=== PATIENT | male | born 1945 | race Caucasian/White ===

== ENCOUNTER 2018-09-17 12:52 | Emergency (ER) | payer OTHER ==
[~2018-09-17] VITALS: Ht 177.8 cm; Wt 117.9 kg
[~2018-09-17 12:52] MED LIST: ACET325; ACET500; ALPR.25 PO; ATEN50; ATEN50 PO; ATOR40TA; Aspir 8181 MG PO; CELE200 PO; CEPH500 PO; ENOX40I SC; FLUSAL2505; HYDACE5 PO; HYDMOR2 PO; IRBE150; LEVFLO500 PO; LIPITOR; LISI20 PO; METO100ER PO; METO50ER; Multi-Day Vita1 EACH; NAPR550 PO; Norco 5-325 Ta1 EACH PO; ONDA8 PO; OXYACE5T PO; OXYC10ER PO; OXYC5 PO; Oxycodone HCl5 M1 PO; PHENA100 PO; PRAV20 PO; RANI150 PO; RAPAFLO PO; RXNAPNA550 PO; TRIHYD253B; TRIHYD253B PO
[2018-09-17 13:34] LABS: BASOPHILS ABSOLUTE AUTO 0.05 K/mm3 (0.00-0.23); BASOPHILS PERCENT AUTO 1 % (0-2); EOSINOPHILS ABSOLUTE AUTO 0.14 K/mm3 (0.00-0.68); EOSINOPHILS PERCENT AUTO 2 % (0-6); Hematocrit 32.7 % (37.0-53.0); IMMATURE GRAN ABSOLUTE AUTO 0.06 K/mm3 (0.00-0.10); IMMATURE GRAN PERCENT AUTO 1 % (0-1); LYMPHOCYTES ABSOLUTE AUTO 1.66 K/mm3 (0.84-5.20); LYMPHOCYTES PERCENT AUTO 24 % (21-46); MONOCYTES ABSOLUTE AUTO 0.62 K/mm3 (0.16-1.47); MONOCYTES PERCENT AUTO 9 % (4-13); Mean Corpuscular HGB 32.7 pg (26.0-34.0); Mean Corpuscular HGB Conc 33.6 g/dL (31.5-36.5); Mean Corpuscular Volume 97 fL (80-100); Mean Platelet Volume 10.2 fL (9.1-12.4); NEUTROPHILS PERCENT AUTO 63 % (41-73); Platelet Count 321 K/mm3 (150-400); RDW Standard Deviation 45.4 fL (35.1-46.3); Red Blood Cell Count 3.36 M/mm3 (4.30-5.90); White Blood Cell Count 6.83 K/mm3 (4.00-11.30)
[2018-09-17 13:54] LABS: Alanine Aminotransfer (ALT/SGP 23 U/L (12-78); Albumin, Blood 3.5 g/dL (3.4-5.0); Albumin/Globulin Ratio 1.2 (0.8-1.8); Alk Phos 77 U/L (50-136); Anion Gap 8 mmol/L (6-16); Aspartate Aminotrans (AST/SGOT 21 U/L (12-37); Bilirubin, Total 0.6 mg/dL (0.1-1.0); Blood Urea Nitrogen 21 mg/dL (8-24); Bun/Creatinine Ratio 20.6 (12.0-20.0); CO2, Blood 28 mmol/L (21-32); Calcium, Blood 8.2 mg/dL (8.5-10.1); Chloride, Blood 105 mmol/L (98-108); Creatinine, Blood 1.02 mg/dL (0.60-1.20); Globulin, Blood 2.9 g/dL (2.2-4.0); Glomerular Filtration Rate >60 (60-); Glucose, Blood 117 mg/dL (70-99); Potassium, Blood 3.9 mmol/L (3.5-5.5); Sodium, Blood 141 mmol/L (136-145); Total Protein, Blood 6.4 g/dL (6.4-8.2); Troponin I <0.015 ng/mL (0.000-0.040)
[2018-09-17] MEDS ORDERED: Fish Oil 10001000 MG GT (14:49)
== END 2018-09-17 16:39 | disposition home or self-care (01) ==
LOC: ER 12:52
PROVIDERS: Physician Assistant
DX: F41.9 Anxiety disorder, unspecified (principal); G47.00 Insomnia, unspecified; F43.9 Reaction to severe stress, unspecified; Z87.891 Personal history of nicotine dependence; Z85.51 Personal history of malignant neoplasm of bladder
CPT/HCPCS: 36415; 71046; 80053; 84484; 85025; 93005; 93010; 99284-25

== ENCOUNTER → 2018-10-04 | Outpatient (CLI) | payer OTHER ==
[~2018-10-04] MED LIST changes: +Fish Oil 10001000 MG GT
[2018-10-04 15:20] LABS: Stool Occult Bld Immuno 1 Negative (NEGATIVE)
== END | disposition home or self-care (01) ==
LOC: LAB SHORT 10:15 → LAB 10:15 → LAB FUT 10-03 12:40
PROVIDERS: Internal Medicine Gastroenterology
DX: D50.9 Iron deficiency anemia, unspecified (principal)
CPT/HCPCS: G0328

== ENCOUNTER 2018-10-16 09:06 | Day surgery (SDC) | payer OTHER ==
[~2018-10-16] VITALS: Ht 177.8 cm; Wt 115.7 kg
== END 2018-10-16 11:29 | disposition home or self-care (01) ==
LOC: ORSCSDS 09:06
PROVIDERS: Internal Medicine Gastroenterology
PROC: 0DB98ZX Excision of Duodenum, Via Natural or Artificial Opening Endoscopic, Diagnostic (ICD-10-PCS; principal; 2018-10-16 10:30)
PROC: 0DB68ZX Excision of Stomach, Via Natural or Artificial Opening Endoscopic, Diagnostic (ICD-10-PCS; principal; 2018-10-16 10:30)
DX: D50.9 Iron deficiency anemia, unspecified (principal); K29.80 Duodenitis without bleeding; I10 Essential (primary) hypertension; Z87.891 Personal history of nicotine dependence; Z79.82 Long term (current) use of aspirin; Z79.899 Other long term (current) drug therapy
CPT/HCPCS: 87081; 88305; 88342; J7120

== ENCOUNTER → 2018-11-28 | Outpatient (CLI) | payer OTHER ==
[2018-11-29 14:08] LABS: Stool Occult Bld Immuno 1 Negative (NEGATIVE)
== END | disposition home or self-care (01) ==
LOC: LAB 16:04 → LAB SHORT 16:04 → LAB FUT 10-04 10:25
PROVIDERS: Internal Medicine Gastroenterology
DX: D50.9 Iron deficiency anemia, unspecified (principal)
CPT/HCPCS: G0328

== ENCOUNTER → 2021-06-10 | Outpatient (CLI) | payer OTHER | END | disposition home or self-care (01) | LOC: LAB SHORT 12:23 | DX: D48.5 Neoplasm of uncertain behavior of skin (principal) | CPT/HCPCS: 88305 ==

== ENCOUNTER → 2021-06-30 | Outpatient (CLI) | payer OTHER | END | disposition home or self-care (01) | LOC: LAB 14:53 → LAB SHORT 14:53 | DX: D48.5 Neoplasm of uncertain behavior of skin (principal) | CPT/HCPCS: 88305 ==

== ENCOUNTER → 2021-07-08 | Outpatient (CLI) | payer OTHER | END | disposition home or self-care (01) | LOC: LAB SHORT 15:50 → LAB 15:50 | DX: D48.5 Neoplasm of uncertain behavior of skin (principal) | CPT/HCPCS: 88305 ==

== ENCOUNTER 2021-11-30 09:01 | Day surgery (SDC) | payer OTHER ==
[~2021-11-30] VITALS: Ht 177.8 cm; Wt 118.7 kg
[2021-11-30] MEDS ORDERED: Flovent 220 Ora12 GM INH (09:30)
[2021-11-30] MEDS ORDERED: CELE200 PO (09:31)
[2021-11-30] MEDS ORDERED: ESCI10 PO (09:33)
== END 2021-11-30 10:52 | disposition home or self-care (01) ==
LOC: ORSCSDS 09:01
PROVIDERS: Internal Medicine Gastroenterology
PROC: 0DBE8ZX Excision of Large Intestine, Via Natural or Artificial Opening Endoscopic, Diagnostic (ICD-10-PCS; principal; 2021-11-30 10:30)
DX: R19.4 Change in bowel habit (principal); Z86.010 Personal history of colon polyps; K57.30 Diverticulosis of large intestine without perforation or abscess without bleeding; K58.2 Mixed irritable bowel syndrome; Z87.891 Personal history of nicotine dependence; E66.9 Obesity, unspecified; Z68.37 Body mass index [BMI] 37.0-37.9, adult; Z79.899 Other long term (current) drug therapy
CPT/HCPCS: 88305; J2704; J7120

== ENCOUNTER → 2022-02-03 | Outpatient (CLI) | payer OTHER ==
[~2022-02-03] MED LIST changes: +ESCI10 PO; +Flovent 220 Ora12 GM INH
[2022-02-03 15:00] LABS: BASOPHILS ABSOLUTE AUTO 0.08 K/mm3 (0.00-0.23); BASOPHILS PERCENT AUTO 1 % (0-2); EOSINOPHILS ABSOLUTE AUTO 0.02 K/mm3 (0.00-0.68); EOSINOPHILS PERCENT AUTO 0 % (0-6); Hematocrit 50.2 % (37.0-53.0); Hemoglobin 17.5 g/dL (13.5-17.5); IMMATURE GRAN ABSOLUTE AUTO 0.04 K/mm3 (0.00-0.10); IMMATURE GRAN PERCENT AUTO 0 % (0-1); LYMPHOCYTES ABSOLUTE AUTO 1.43 K/mm3 (0.84-5.20); LYMPHOCYTES PERCENT AUTO 14 % (21-46); MONOCYTES ABSOLUTE AUTO 0.97 K/mm3 (0.16-1.47); MONOCYTES PERCENT AUTO 9 % (4-13); Mean Corpuscular HGB 32.2 pg (26.0-34.0); Mean Corpuscular HGB Conc 34.9 g/dL (31.5-36.5); Mean Corpuscular Volume 92 fL (80-100); Mean Platelet Volume 10.7 fL (9.1-12.4); NEUTROPHILS ABSOLUTE AUTO 7.99 K/mm3 (1.96-9.15); NEUTROPHILS PERCENT AUTO 76 % (41-73); Platelet Count 270 K/mm3 (150-400); RDW Coefficient Variation 12.4 % (11.7-14.2); RDW Standard Deviation 42.6 fL (35.1-46.3); Red Blood Cell Count 5.43 M/mm3 (4.30-5.90); White Blood Cell Count 10.53 K/mm3 (4.00-11.30)
[2022-02-03 15:27] LABS: Albumin, Blood 3.7 g/dL (3.4-5.0); Bilirubin, Total 1.6 mg/dL (0.1-1.0); Bun/Creatinine Ratio 22.7 (12.0-20.0); Calcium, Blood 8.9 mg/dL (8.5-10.1); Creatinine, Blood 0.75 mg/dL (0.60-1.20); Globulin, Blood 3.8 g/dL (2.2-4.0); Total Protein, Blood 7.5 g/dL (6.4-8.2)
== END | disposition home or self-care (01) ==
LOC: LAB 14:46 → LAB SHORT 14:46
PROVIDERS: Nurse Practitioner Family
DX: R30.9 Painful micturition, unspecified (principal); R10.10 Upper abdominal pain, unspecified; R19.7 Diarrhea, unspecified; R53.83 Other fatigue
CPT/HCPCS: 80053; 83735; 85025

== ENCOUNTER 2022-02-07 09:04 | Emergency (ER) | payer OTHER ==
[~2022-02-07] VITALS: Ht 177.8 cm; Wt 122.5 kg
[2022-02-07 11:26] LABS: BASOPHILS ABSOLUTE AUTO 0.04 K/mm3 (0.00-0.23); BASOPHILS PERCENT AUTO 1 % (0-2); EOSINOPHILS ABSOLUTE AUTO 0.19 K/mm3 (0.00-0.68); EOSINOPHILS PERCENT AUTO 2 % (0-6); Hematocrit 47.5 % (37.0-53.0); Hemoglobin 16.1 g/dL (13.5-17.5); IMMATURE GRAN ABSOLUTE AUTO 0.06 K/mm3 (0.00-0.10); IMMATURE GRAN PERCENT AUTO 1 % (0-1); LYMPHOCYTES ABSOLUTE AUTO 1.39 K/mm3 (0.84-5.20); LYMPHOCYTES PERCENT AUTO 16 % (21-46); MONOCYTES ABSOLUTE AUTO 0.75 K/mm3 (0.16-1.47); MONOCYTES PERCENT AUTO 9 % (4-13); Mean Corpuscular HGB 32.1 pg (26.0-34.0); Mean Corpuscular HGB Conc 33.9 g/dL (31.5-36.5); Mean Corpuscular Volume 95 fL (80-100); NEUTROPHILS ABSOLUTE AUTO 6.16 K/mm3 (1.96-9.15); NEUTROPHILS PERCENT AUTO 72 % (41-73); Platelet Count 283 K/mm3 (150-400); RDW Coefficient Variation 12.3 % (11.7-14.2); RDW Standard Deviation 42.5 fL (35.1-46.3); Red Blood Cell Count 5.02 M/mm3 (4.30-5.90); White Blood Cell Count 8.59 K/mm3 (4.00-11.30)
[2022-02-07 11:50] LABS: Albumin, Blood 3.3 g/dL (3.4-5.0); Albumin/Globulin Ratio 0.9 (0.8-1.8); Bilirubin, Total 1.1 mg/dL (0.1-1.0); Bun/Creatinine Ratio 13.3 (12.0-20.0); Calcium, Blood 8.9 mg/dL (8.5-10.1); Creatinine, Blood 0.83 mg/dL (0.60-1.20); Globulin, Blood 3.6 g/dL (2.2-4.0); Potassium, Blood 3.7 mmol/L (3.5-5.5); Total Protein, Blood 6.9 g/dL (6.4-8.2)
[2022-02-07] MEDS ORDERED: ONDA4 PO (12:36)
== END 2022-02-07 15:29 | disposition home or self-care (01) ==
LOC: ER 09:04
PROVIDERS: Physician Assistant
DX: A08.4 Viral intestinal infection, unspecified (principal); U07.1 COVID-19; Z88.0 Allergy status to penicillin; Z88.8 Allergy status to other drugs, medicaments and biological substances; Z87.891 Personal history of nicotine dependence
CPT/HCPCS: 36415; 74176; 80053; 83690; 85025; J2405; J7030

== ENCOUNTER 2024-03-13 14:42 | Emergency (ER) | payer OTHER ==
[~2024-03-13] VITALS: Ht 177.8 cm; Wt 119.3 kg
[~2024-03-13 14:42] MED LIST changes: +ONDA4 PO
[2024-03-13 15:02] VITALS: BP 144/95
[2024-03-13] MEDS ORDERED: DYAZIDE 37.5-21 EACH PO (15:36)
[2024-03-13] MEDS ORDERED: TROSPIUM CHLORI60 MG PO (15:36)
[2024-03-13] MEDS ORDERED: OXYACE7.5T PO (15:53)
[2024-03-13] MEDS ORDERED: DOC250 PO (15:53)
== END 2024-03-13 16:08 | disposition home or self-care (01) ==
LOC: ER 14:42
DX: S70.01XA Contusion of right hip, initial encounter (principal); V47.5XXA Car driver injured in collision with fixed or stationary object in traffic accident, initial encounter; M16.11 Unilateral primary osteoarthritis, right hip; I10 Essential (primary) hypertension; E78.5 Hyperlipidemia, unspecified; Z87.891 Personal history of nicotine dependence; Z88.0 Allergy status to penicillin; Z88.8 Allergy status to other drugs, medicaments and biological substances; Z79.899 Other long term (current) drug therapy
CPT/HCPCS: 73552; 99283-25

== ENCOUNTER 2024-10-10 08:39 | Day surgery (SDC) | payer OTHER ==
[~2024-10-10] VITALS: Ht 171 cm; Wt 112.4 kg
[~2024-10-10 08:39] MED LIST changes: -ACET325; +Acetaminophen 500 MG Tab PO SCH; +Acetaminophen650 M1 PO; +CeFAZolin Sodium 2,000 MG VIAL ONE; +CeFAZolin Sodium 2,000 MG in NS 100 ML IV SCH; +Chlorhexidine Mouth Care 15 ML UDC MT SCH; +DOC250 PO; +DYAZIDE 37.5-21 EACH PO; +FLOVENT INH; -Flovent 220 Ora12 GM INH; +LORA10ER PO; +Lactated Ringer's 1,000 ML IV SCH; +MIRABEGRON ER50 MG PO; +MULTI-VITAMIN1 EAC2 PO; -Multi-Day Vita1 EACH; +OXYACE7.5T PO; +OxyCODONE HCL 10 MG TABCR PO SCH; +Percocet 5-3251 EACH PO; +Ropivacaine 0.5% HCl/Pf 123.125 MG,EPINEPHrine HCL 0.25 MG,Ketorolac Tromethamine 15 MG... INFIL SCH; +TROSPIUM CHLORI60 MG PO; +Tranexamic Acid 1,000 MG in NS 100 ML IV SCH; +Vancomycin HCL 1,000 MG in NS 250 ML IV SCH; +ZESTRIL40 M1 PO; +[UNRECOGNIZED DRUG - OTHER] PO
[2024-10-10] MEDS ORDERED: propofoL 60 ML IV ONE (08:41)
[2024-10-10] MEDS ORDERED: FentaNYL Citrate 50 MCG/ML 2 ML Injection ONE (08:41)
[2024-10-10] MEDS ORDERED: Dexamethasone Sod Phos 10 MG/ML 1ML VIAL ONE (08:42)
[2024-10-10] MEDS ORDERED: Ondansetron HCl 2 MG / ML 2ML Vial ONE (08:42)
[2024-10-10] MEDS ORDERED: Phenylephrine HCl 100 MCG/ML-NS 10MLSYR (1MG/10ML) ONE (08:42)
[2024-10-10 09:27] VITALS: BP 131/81
--- NOTE | 2024-10-10 09:47 | NUR ---
Wheelchaired into Day Surgery. History, Chart, Medications and Allergies reviewed before start of procedure. Pre-Op teaching done. Pt verbalizes understanding.
--- NOTE | 2024-10-10 09:55 | NUR ---
SMALL AREA OF YEAST INFECTION NOTED TO RIGHT SIDE OF PANIS AREA. WILL INFORM DR TORRES.
[2024-10-10] MEDS ORDERED: HYDROmorphone HCl 2 MG Tab PO PRN (10:35)
[2024-10-10] MEDS ORDERED: HYDROmorphone HCl/Pf 1MG SYR IV PRN (10:35)
[2024-10-10] MEDS ORDERED: Bisacodyl 10 MG Supp PR PRN (10:35)
--- NOTE | 2024-10-10 10:35 | NUR ---
DR TORRES AT BEDSIDE TO REVIEW YEAST INFECTION TO RIGHT PANIS AREA. DUE TO HAVING IRRITATION TO AREA, DR TORRES WILL CANCEL SURGERY TO CLEAR AREA AND RESCHEDULE SURGERY.
[2024-10-10] MEDS ORDERED: Prochlorperazine Edisylate 10 mg Vial IV PRN (10:40)
[2024-10-10] MEDS ORDERED: Metoclopramide HCl 5MG / ML 2ML Vial IV PRN (10:40)
[2024-10-10] MEDS ORDERED: DiphenhydrAMINE HCL 25 MG Cap PO PRN (10:40)
[2024-10-10] MEDS ORDERED: Magnesium Hydroxide Conc 10 ML UDC PO PRN (10:40)
[2024-10-10] MEDS ORDERED: Ondansetron HCl 2 MG / ML 2ML Vial IV PRN (10:40)
[2024-10-10] MEDS ORDERED: FLU VACC TS2024-25(6MOS UP)/PF 45 MCG/0.5 ML SYRINGE IM PRN (10:40)
[2024-10-10] MEDS ORDERED: Promethazine HCl 25 MG Tab PO PRN (10:45)
[2024-10-10] MEDS ORDERED: Lactated Ringer's 1,000 ML IV SCH (10:45)
--- NOTE | 2024-10-10 10:56 | NUR ---
PT DISCHARGE HOME WITH RX OF NYSTATIN POWDER TO APPLY TO AFFECTED AREAS. DID EXAM/EDUCATED PATIENT THAT LEFT SIDE OF PANIS AREA IRRITATED ALSO. INSTRUCTED TO APPLY POWDER TO ALL PANIS AREA. INFORMED DAUGHTER NILESH THAT PATIENT RECEIVED OXYCONTIN 20MG PO AND TYLENOL 1000MG PO. PATIENT STABLE FOR DISCHARGE.
[2024-10-10] MEDS ORDERED: Ketorolac Tromethamine 15mg Vial IV SCH (12:00)
[2024-10-10] MEDS ORDERED: Acetaminophen 500 MG Tab PO SCH (16:00)
[2024-10-10] MEDS ORDERED: Vancomycin HCL 1,000 MG in NS 250 ML IV ONE (20:00)
[2024-10-10] MEDS ORDERED: Docusate Sodium 100 MG Cap PO SCH (21:00)
[2024-10-11] MEDS ORDERED: Trimethoprim/Sulfamethoxazole DS Tab PO SCH (09:00)
[2024-10-11] MEDS ORDERED: Rivaroxaban 10 MG Tab PO SCH (19:00)
[2024-11-07] MEDS ORDERED: ALBU90OI INH (06:33)
[2024-11-08] MEDS ORDERED: HYDMOR2 PO (08:14)
[2024-11-08] MEDS ORDERED: XARELTO10 M3 PO (08:14)
[2024-11-08] MEDS ORDERED: SULTRIDS PO (08:16)
== END 2024-10-10 23:00 | disposition home or self-care (01) ==
LOC: ORSCMMR 08:39 → ORD 10:45 → ORSCMMR 10:45
DX: M16.11 Unilateral primary osteoarthritis, right hip (principal); Z53.9 Procedure and treatment not carried out, unspecified reason
CPT/HCPCS: A9270; J0171; J0690; J0735; J1100; J1885; J2371; J2405; J2704; J2795; J3010; J3370; J7050; J7120

== ENCOUNTER 2024-11-07 06:08 | Day surgery (SDC) | payer OTHER ==
[~2024-11-07] VITALS: Ht 177.8 cm; Wt 115.8 kg
[2024-11-07] VITALS (18 sets, daily range): BP systolic 103–133; BP diastolic 63–77
[~2024-11-07 06:08] MED LIST changes: -Acetaminophen 500 MG Tab PO SCH; -CeFAZolin Sodium 2,000 MG VIAL ONE; -CeFAZolin Sodium 2,000 MG in NS 100 ML IV SCH; -Chlorhexidine Mouth Care 15 ML UDC MT SCH; -Lactated Ringer's 1,000 ML IV SCH; -OxyCODONE HCL 10 MG TABCR PO SCH; -Ropivacaine 0.5% HCl/Pf 123.125 MG,EPINEPHrine HCL 0.25 MG,Ketorolac Tromethamine 15 MG... INFIL SCH; -Tranexamic Acid 1,000 MG in NS 100 ML IV SCH; -Vancomycin HCL 1,000 MG in NS 250 ML IV SCH
[2024-11-07] MEDS ORDERED: Tranexamic Acid 100 ML IV SCH (06:15)
[2024-11-07] MEDS ORDERED: Ropivacaine 0.5% HCl/Pf 123.125 MG,EPINEPHrine HCL 0.25 MG,Ketorolac Tromethamine 15 MG... INFIL SCH (06:15)
[2024-11-07] MEDS ORDERED: Lactated Ringer's 1,000 ML IV SCH ×2 (06:15→07:00)
[2024-11-07] MEDS ORDERED: Vancomycin HCL 1,000 MG in NS 250 ML IV SCH ×2 (06:15→20:00)
[2024-11-07] MEDS ORDERED: OxyCODONE HCL 10 MG TABCR PO SCH (06:15)
[2024-11-07] MEDS ORDERED: Chlorhexidine Mouth Care 15 ML UDC MT SCH (06:15)
[2024-11-07] MEDS ORDERED: Acetaminophen 500 MG Tab PO SCH ×2 (06:15→08:00)
[2024-11-07] MEDS ORDERED: FentaNYL Citrate 50 MCG/ML 2 ML Injection ONE (06:17)
[2024-11-07] MEDS ORDERED: propofoL 40 ML IV ONE (06:17)
[2024-11-07] MEDS ORDERED: ALBU90OI INH ×2 (06:33)
[2024-11-07] MEDS ORDERED: DiphenhydrAMINE HCL 25 MG Cap PO PRN (06:55)
[2024-11-07] MEDS ORDERED: HYDROmorphone HCl 2 MG Tab PO PRN (06:55)
[2024-11-07] MEDS ORDERED: FLU VACC TS2024-25(6MOS UP)/PF 45 MCG/0.5 ML SYRINGE IM SCH (06:55)
[2024-11-07] MEDS ORDERED: Ondansetron HCl 2 MG / ML 2ML Vial IV PRN (07:00)
[2024-11-07] MEDS ORDERED: Prochlorperazine Edisylate 10 mg Vial IV PRN (07:00)
[2024-11-07] MEDS ORDERED: Metoclopramide HCl 5MG / ML 2ML Vial IV PRN (07:00)
[2024-11-07] MEDS ORDERED: HYDROmorphone HCl 0.5 MG/0.5 ML SYR IV PRN (07:00)
[2024-11-07] MEDS ORDERED: Magnesium Hydroxide Conc 10 ML UDC PO PRN (07:00)
[2024-11-07] MEDS ORDERED: Ondansetron 4 MG SoluTab MM PRN (07:00)
[2024-11-07] MEDS ORDERED: CeFAZolin Sodium 2,000 MG in NS 100 ML IV SCH ×2 (07:05→16:00)
[2024-11-07] MEDS ORDERED: Bisacodyl 10 MG Supp PR PRN (07:05)
[2024-11-07] MEDS ORDERED: Loratadine 10 MG Tab PO PRN (07:05)
[2024-11-07] MEDS ORDERED: CeFAZolin Sodium 2,000 MG VIAL ONE (07:23)
--- NOTE | 2024-11-07 07:26 | NUR ---
Wheelchaired into Day Surgery. History, Chart, Medications and Allergies reviewed before start of procedure. Pre-Op teaching done. Pt verbalizes understanding.
[2024-11-07] MEDS ORDERED: Albuterol HFA200 ACT/6.7 GM INH INH PRN (07:55)
[2024-11-07] MEDS ORDERED: Phenylephrine HCl 100 MCG/ML-NS 10MLSYR (1MG/10ML) ONE (08:04)
[2024-11-07] MEDS ORDERED: Promethazine HCl 25 MG Tab PO PRN (08:15)
[2024-11-07] MEDS ORDERED: propofoL 20 ML IV ONE ×3 (08:30→09:32)
[2024-11-07] MEDS ORDERED: Triamter/HCthiazide 37.5/25 MG 1 Tab PO SCH (09:00)
[2024-11-07] MEDS ORDERED: Citalopram Hydrobromide 10 MG TAB PO SCH (09:00)
[2024-11-07] MEDS ORDERED: Metoprolol Succinate 50 MG TABCR PO SCH (09:00)
[2024-11-07] MEDS ORDERED: Docusate Sodium 100 MG Cap PO SCH (09:00)
[2024-11-07] MEDS ORDERED: Vancomycin HCl 1000 MG ADDvantage ONE (09:33)
[2024-11-07] MEDS ORDERED: Ketorolac Tromethamine 15mg Vial IV SCH (12:00)
--- NOTE | 2024-11-07 12:00 | NUR ---
ARRIVAL TO ROOM @ 1115 PATIENT DROWSY, ON 2L NC, SATS ARE 90-95%. FAMILY IN ROOM, VITALS ARE STABLE. CALL LIGHT IN REACH.
--- NOTE | 2024-11-07 14:43 | NUR ---
OT EVAL WITH PATIENT PATIENT DID STAND AND PIVOT TO CHAIR. PATIENT REPORTED FEELING LIGHT HEADED, APPEARED PALE AND SLIGHTLY SWEATY. PATIENT IS NOW IN RECLINER WITH LEGS ELEVATED, BP IS 117/63, HR 64, 2L NC 95%. PATIENT REPORTS FEELING BETTER, DRINKING WATER AND COLOR RETURNS TO FACE. CALL LIGHT IS IN REACH.
--- NOTE | 2024-11-07 17:00 | NUR ---
SHIFT SUMMARY PATIENT POD 0 R CYRUS, POSTERIOR HIP PRECAUTIONS, X2 SITES WITH GAUZE AND FOAM TAPE. C/D/I. PATIENT UP WITH OT/PT TO THE CHAIR. DID GET LIGHTHEADED AND SAT BACK DOWN WITH LEGS ELEVATED. BP STABLE. HR STABLE. NO FURTHER ACUTE EVENTS. TOLERATING PO INTAKE. MEDICATED PER EMAR. ICE AND SCDS IN PLACE, CALL LIGHT IN REACH.
[2024-11-07] MEDS ORDERED: Pravastatin Sodium 20 MG Tab PO SCH (21:00)
[2024-11-08] MEDS ORDERED: Ketorolac Tromethamine 15mg Vial IV SCH (03:00)
[2024-11-08 04:24] LABS: BASOPHILS ABSOLUTE AUTO 0.04 K/mm3 (0.00-0.23); BASOPHILS PERCENT AUTO 0 % (0-2); EOSINOPHILS ABSOLUTE AUTO 0.06 K/mm3 (0.00-0.68); EOSINOPHILS PERCENT AUTO 1 % (0-6); Hematocrit 34.8 % (37.0-53.0); Hemoglobin 12.1 g/dL (13.5-17.5); IMMATURE GRAN ABSOLUTE AUTO 0.04 K/mm3 (0.00-0.10); IMMATURE GRAN PERCENT AUTO 0 % (0-1); LYMPHOCYTES ABSOLUTE AUTO 1.06 K/mm3 (0.84-5.20); LYMPHOCYTES PERCENT AUTO 10 % (21-46); MONOCYTES ABSOLUTE AUTO 1.06 K/mm3 (0.16-1.47); MONOCYTES PERCENT AUTO 10 % (4-13); Mean Corpuscular HGB 33.3 pg (26.0-34.0); Mean Corpuscular HGB Conc 34.8 g/dL (31.5-36.5); Mean Corpuscular Volume 96 fL (80-100); Mean Platelet Volume 10.4 fL (9.1-12.4); NEUTROPHILS ABSOLUTE AUTO 8.48 K/mm3 (1.96-9.15); NEUTROPHILS PERCENT AUTO 79 % (41-73); Platelet Count 162 K/mm3 (150-400); RDW Coefficient Variation 12.6 % (11.7-14.2); RDW Standard Deviation 43.7 fL (35.1-46.3); Red Blood Cell Count 3.63 M/mm3 (4.30-5.90); White Blood Cell Count 10.74 K/mm3 (4.00-11.30)
--- NOTE | 2024-11-08 04:47 | NUR ---
ALERT AND ORIENTED X3 T/O NOC. DENIES PAIN, PATIENT GETTING SCHEDULED TYLENOL AND TORADOL. DRESSING X3 TO RIGHT LOWER ABD AND 2 RIGHT UPPER LE ARE C/D/I. INCISIONS COVERED WITH BULKY DRESSING AND SECURED WITH PRESSURE TAPE. PLEASANT AND COOPERATIVE WITH CARE. POLAR PACK WITH ICE ADDED AND CHANGED T/O SHIFT. SL LEFT FA, FLUSHED WELL, MILD REDNESS, PATIENT DENIES PAIN. TOLERATED SCUDS T/O NOC SHIFT. USES CALL LIGHT APPROP. UP TO THE BR WITH SB ASSIST, GAITBELT AND WALKER. VOIDING. PATIENT RESTED WELL WHEN UNDISTURBED. NO ACUTE CHANGES T/O NOC. WILL GIVE REPORT TO ON-COMING RN TAKING PT.
[2024-11-08 04:55] LABS: Calcium, Blood 8.2 mg/dL (8.5-10.1); Creatinine, Blood 0.96 mg/dL (0.60-1.20); Potassium, Blood 3.6 mmol/L (3.5-5.5)
[2024-11-08 05:32] VITALS: BP 119/62
[2024-11-08 07:25] VITALS: BP 134/72
[2024-11-08] MEDS ORDERED: XARELTO10 M3 PO ×2 (08:14)
[2024-11-08] MEDS ORDERED: HYDMOR2 PO ×2 (08:14)
[2024-11-08] MEDS ORDERED: SULTRIDS PO ×2 (08:16)
[2024-11-08] MEDS ORDERED: Trimethoprim/Sulfamethoxazole DS Tab PO SCH (09:00)
[2024-11-08 12:26] VITALS: BP 124/66
--- NOTE | 2024-11-08 13:00 | NUR ---
DISCHARGE NOTE PT IS ALERT, FOLLOWING COMMANDS, AMBULATING SBA W/ FWW AND GB. PAIN MANAGED W/ PAIN MEDS PER EMAR. VSS. DRESSINGS C/D/I. CAP REFILL IN R TOES 2 SECS, PT CAN WIGGLE TOES, PEDAL PULSE PALPABLE. DISCHARGE INSTRUCTIONS REVIEWED W/ PT, COPY GIVEN. PT IS TOLERATING REG DIET AND VOIDING. PT HAS PAIN MEDS AT HOME. DRESSING CHANGES SENT W/ PT. PT DC'D IN STABLE CONDITION VIA WC TO PRIVATE RIDE HOME W/ ALL BELONGINGS.
[2024-11-08] MEDS ORDERED: Rivaroxaban 10 MG Tab PO SCH (19:00)
== END 2024-11-08 13:00 | disposition home or self-care (01) ==
LOC: ORSCMMR 06:08 → ORD 07:30 → SURS 11:15 → ORSCMMR 11-08 13:00
PROVIDERS: Orthopaedic Surgery
PROC: 0SR90JA Replacement of Right Hip Joint with Synthetic Substitute, Uncemented, Open Approach (ICD-10-PCS; principal; 2024-11-07 07:30)
DX: M16.11 Unilateral primary osteoarthritis, right hip (principal); Z96.642 Presence of left artificial hip joint; I10 Essential (primary) hypertension; E78.5 Hyperlipidemia, unspecified; J45.909 Unspecified asthma, uncomplicated; Z85.51 Personal history of malignant neoplasm of bladder; Z85.828 Personal history of other malignant neoplasm of skin; Z79.899 Other long term (current) drug therapy; F41.8 Other specified anxiety disorders; G47.33 Obstructive sleep apnea (adult) (pediatric); Z87.891 Personal history of nicotine dependence; E03.9 Hypothyroidism, unspecified; E66.9 Obesity, unspecified; Z68.39 Body mass index [BMI] 39.0-39.9, adult; Z99.81 Dependence on supplemental oxygen
CPT/HCPCS: 36415; 72170; 80048; 83735; 85025; 97110; 97116; 97162; 97165; 97530; 97535; A9270; C1713; C1776; J0171; J0690; J0735; J1885; J2371; J2704; J2795; J3010; J3370; J7050; J7120

== ENCOUNTER 2024-11-09 12:28 | Emergency (ER) | payer OTHER ==
[~2024-11-09] VITALS: Ht 177.8 cm; Wt 117.9 kg
[~2024-11-09 12:28] MED LIST changes: +ALBU90OI INH; +SULTRIDS PO; +XARELTO10 M3 PO
[2024-11-09 13:53] LABS: BASOPHILS ABSOLUTE AUTO 0.04 K/mm3 (0.00-0.23); BASOPHILS PERCENT AUTO 0 % (0-2); EOSINOPHILS ABSOLUTE AUTO 0.03 K/mm3 (0.00-0.68); EOSINOPHILS PERCENT AUTO 0 % (0-6); Hematocrit 36.2 % (37.0-53.0); Hemoglobin 12.7 g/dL (13.5-17.5); IMMATURE GRAN ABSOLUTE AUTO 0.08 K/mm3 (0.00-0.10); IMMATURE GRAN PERCENT AUTO 1 % (0-1); LYMPHOCYTES ABSOLUTE AUTO 1.04 K/mm3 (0.84-5.20); LYMPHOCYTES PERCENT AUTO 9 % (21-46); MONOCYTES ABSOLUTE AUTO 1.17 K/mm3 (0.16-1.47); MONOCYTES PERCENT AUTO 10 % (4-13); Mean Corpuscular HGB 33.4 pg (26.0-34.0); Mean Corpuscular HGB Conc 35.1 g/dL (31.5-36.5); Mean Corpuscular Volume 95 fL (80-100); Mean Platelet Volume 10.7 fL (9.1-12.4); NEUTROPHILS ABSOLUTE AUTO 9.41 K/mm3 (1.96-9.15); NEUTROPHILS PERCENT AUTO 80 % (41-73); Platelet Count 197 K/mm3 (150-400); RDW Coefficient Variation 12.8 % (11.7-14.2); RDW Standard Deviation 44.6 fL (35.1-46.3); White Blood Cell Count 11.77 K/mm3 (4.00-11.30)
[2024-11-09 14:23] LABS: Albumin, Blood 3.1 g/dL (3.4-5.0); Albumin/Globulin Ratio 0.9 (0.8-1.8); Bilirubin, Total 1.3 mg/dL (0.1-1.0); Bun/Creatinine Ratio 14.5 (12.0-20.0); Calcium, Blood 8.5 mg/dL (8.5-10.1); Creatinine, Blood 0.9 mg/dL (0.60-1.20); Globulin, Blood 3.6 g/dL (2.2-4.0); Potassium, Blood 3.5 mmol/L (3.5-5.5); Total Protein, Blood 6.7 g/dL (6.4-8.2)
[2024-11-09 17:23] VITALS: BP 152/68
[2024-11-09] MEDS ORDERED: HYDROmorphone HCl/Pf 1MG SYR IV ONE (19:40)
== END 2024-11-09 21:30 | disposition home or self-care (01) ==
LOC: ER 12:28
PROVIDERS: Student in an Organized Health Care Education/Training Program
DX: G89.18 Other acute postprocedural pain (principal); Z96.641 Presence of right artificial hip joint; I10 Essential (primary) hypertension; E78.5 Hyperlipidemia, unspecified; N40.0 Benign prostatic hyperplasia without lower urinary tract symptoms; Z87.891 Personal history of nicotine dependence; Z79.01 Long term (current) use of anticoagulants; Z88.8 Allergy status to other drugs, medicaments and biological substances; Z88.0 Allergy status to penicillin; Z79.899 Other long term (current) drug therapy
CPT/HCPCS: 72170; 80053; 85025; 96374; 99283-25; J1171

== ENCOUNTER 2024-11-28 10:22 | Emergency (ER) | payer OTHER ==
[~2024-11-28] VITALS: Ht 177.8 cm; Wt 119.3 kg
[2024-11-28 10:54] LABS: BASOPHILS ABSOLUTE AUTO 0.05 K/mm3 (0.00-0.23); BASOPHILS PERCENT AUTO 1 % (0-2); EOSINOPHILS ABSOLUTE AUTO 0.15 K/mm3 (0.00-0.68); EOSINOPHILS PERCENT AUTO 3 % (0-6); Hematocrit 41.6 % (37.0-53.0); Hemoglobin 13.9 g/dL (13.5-17.5); IMMATURE GRAN ABSOLUTE AUTO 0.02 K/mm3 (0.00-0.10); IMMATURE GRAN PERCENT AUTO 0 % (0-1); LYMPHOCYTES ABSOLUTE AUTO 1.34 K/mm3 (0.84-5.20); LYMPHOCYTES PERCENT AUTO 25 % (21-46); MONOCYTES PERCENT AUTO 9 % (4-13); Mean Corpuscular HGB 33.1 pg (26.0-34.0); Mean Corpuscular HGB Conc 33.4 g/dL (31.5-36.5); Mean Corpuscular Volume 99 fL (80-100); Mean Platelet Volume 9.5 fL (9.1-12.4); NEUTROPHILS ABSOLUTE AUTO 3.26 K/mm3 (1.96-9.15); NEUTROPHILS PERCENT AUTO 61 % (41-73); Platelet Count 345 K/mm3 (150-400); RDW Coefficient Variation 13.4 % (11.7-14.2); RDW Standard Deviation 48.7 fL (35.1-46.3); White Blood Cell Count 5.32 K/mm3 (4.00-11.30)
[2024-11-28 11:22] LABS: Albumin, Blood 3.4 g/dL (3.4-5.0); Albumin/Globulin Ratio 1.1 (0.8-1.8); Bilirubin, Total 1.6 mg/dL (0.1-1.0); Bun/Creatinine Ratio 13.9 (12.0-20.0); Calcium, Blood 8.9 mg/dL (8.5-10.1); Creatinine, Blood 0.86 mg/dL (0.60-1.20); Globulin, Blood 3.2 g/dL (2.2-4.0); Total Protein, Blood 6.6 g/dL (6.4-8.2)
[2024-11-28 13:01] LABS: Source, Urine Clean Catch
[2024-11-28 13:03] LABS: Appearance, Urine Clear (Clear); Bilirubin, Urine Neg (Neg); Blood, Urine Neg (Neg); Color, Urine Yellow (P-Yellow); Glucose Qualitative, Urine Neg (Neg); Ketones, Urine 1+ (Neg); Leukocyte Esterase, Urine Neg (Neg); Nitrite, Urine Neg (Neg); Protein, Urine Neg (Neg); Urobilinogen, Urine NORM (Normal); pH, Urine 6.5 (5.0-8.0)
[2024-11-28 13:23] VITALS: BP 125/81
== END 2024-11-28 14:51 | disposition home or self-care (01) ==
LOC: ER 10:22
PROVIDERS: Emergency Medicine
DX: R32 Unspecified urinary incontinence (principal); R35.0 Frequency of micturition; J44.9 Chronic obstructive pulmonary disease, unspecified; I10 Essential (primary) hypertension; E78.5 Hyperlipidemia, unspecified; Z88.0 Allergy status to penicillin; Z88.8 Allergy status to other drugs, medicaments and biological substances; Z79.01 Long term (current) use of anticoagulants; Z79.899 Other long term (current) drug therapy
CPT/HCPCS: 80053; 81003; 85025; 99283